=== PATIENT | male | born 1965 | race Caucasian/White ===

== ENCOUNTER → 2020-03-08 16:00 | Outpatient (BNVA) | payer SELFPAY | PROVIDERS: Visit Provider Nurse Practitioner Family | DX: M25.50 Pain in unspecified joint (principal); E78.2 Mixed hyperlipidemia; Z79.899 Other long term (current) drug therapy; I10 Essential (primary) hypertension; M25.569 Pain in unspecified knee; R53.83 Other fatigue; M19.90 Unspecified osteoarthritis, unspecified site; H66.90 Otitis media, unspecified, unspecified ear | CPT/HCPCS: 80053; 80061; 81001; 83036; 84443; 84550; 85025; 85651; 86140 ==

== ENCOUNTER → 2021-02-26 09:44 | Outpatient (BNVA) | payer SELFPAY | PROVIDERS: PCP Nurse Practitioner Family; Visit Provider Nurse Practitioner Family | DX: I10 Essential (primary) hypertension (principal); Z79.899 Other long term (current) drug therapy; Z12.5 Encounter for screening for malignant neoplasm of prostate; E55.9 Vitamin D deficiency, unspecified; E78.2 Mixed hyperlipidemia | CPT/HCPCS: 80053; 80061; 81003; 82306; 83036; 84443; 85025; G0103 ==

== ENCOUNTER → 2022-04-23 10:52 | Outpatient (BNVA) | payer SELFPAY | PROVIDERS: PCP Nurse Practitioner Family; Visit Provider Nurse Practitioner | DX: R53.83 Other fatigue (principal); T14.8XXA Other injury of unspecified body region, initial encounter; W57.XXXA Bitten or stung by nonvenomous insect and other nonvenomous arthropods, initial encounter | CPT/HCPCS: 85025; 86000; 86618; 86666; 86757 ==

== ENCOUNTER → 2022-05-01 11:36 | Outpatient (BNVA) | payer SELFPAY | PROVIDERS: PCP Nurse Practitioner Family; Visit Provider Nurse Practitioner | DX: M25.50 Pain in unspecified joint (principal); M19.90 Unspecified osteoarthritis, unspecified site; Z79.899 Other long term (current) drug therapy | CPT/HCPCS: 85651; 86038; 86431 ==

== ENCOUNTER → 2024-03-17 10:02 | Outpatient (BNVA) | payer SELFPAY | PROVIDERS: PCP Nurse Practitioner; Visit Provider Nurse Practitioner Family | DX: I10 Essential (primary) hypertension (principal); Z12.5 Encounter for screening for malignant neoplasm of prostate; E11.9 Type 2 diabetes mellitus without complications; Z79.899 Other long term (current) drug therapy; E78.2 Mixed hyperlipidemia | CPT/HCPCS: 80053; 81000; 83036; 85025; G0103 ==

== ENCOUNTER 2024-06-18 09:52 | Outpatient (CLI) | payer OTHER, SELFPAY ==
--- NOTE | 2024-06-18 10:15 | US_ITS ---
WS: [id number] ULTRASOUND ABDOMEN CLINICAL INFORMATION: K81.9 - Cholecystitis, unspecified COMPARISON: None. FINDINGS: Liver Size: Mild hepatomegaly Craniocaudal length: 16.6 cm. Echogenicity: Coarse Surface nodularity: None. Mass (size and location): None. Bile ducts Intrahepatic ducts: Normal. Common bile duct diameter: Not well visualized Gallbladder Normal. Gallstones: None. Gallbladder sludge: None. Gallbladder wall thickening: None. Pericholecystic fluid: None. Sonographic Arango sign: Absent. Pancreas Normal as visualized. Spleen Splenomegaly: None. Craniocaudal length: 9.9 cm. Right kidney: Normal. Hydronephrosis: None. Size: 11.6 cm x 6.4 cm x 6.3 cm Left kidney: Mild hydronephrosis Hydronephrosis: Present Size: 10.1 cm x 5.1 cm x 6.2 cm. Abdominal aorta and IVC Visualized portions are normal. Ascites: None. US/US abdomen complete* [id number] IMPRESSION: 1. Mild hepatomegaly with fatty filtration. 2. Normal gallbladder. 3. Mild LEFT hydronephrosis with dilatation of the LEFT renal pelvis and proxi mal ureter. Recommend further evaluation with noncontrast and contrast-enhanced CT abdomen pelvis to exclude obstruction. Slight dilatation of the LEFT renal pelvis also visualized on the prior CT in 2018 4. No hydronephrosis in the RIGHT kidney.
[2024-06-18 11:02] LABS: Basophils % 0.6 %; Eosinophils # 0.2 10^3/uL (0.0-0.8); Eosinophils % 4.4 %; Lymphocytes # 2.5 10^3/uL (0.8-4.8); Lymphocytes % 47.4 %; Mean Corpuscular HGB Conc 33.3 g/dL (30-55); Mean Corpuscular Hemoglobin 28.3 pg (27-33); Mean Corpuscular Volume 84.8 fl (82-101); Mean Platelet Volume 8.9 fL (7.4-10.4); Monocytes # 0.6 10^3/uL (0.2-0.9); Monocytes % 11.2 %; Neutrophils # 1.87 10^3/uL (1.8-7.7); Neutrophils % 36.2 %; Nucleated Red Blood Cells % 0 %; Platelet Count 326 10^3/cmm (157-399); Red Blood Count 4.95 10^6/uL (3.85-5.65); Red Cell Distribution Width 13.8 % (12.1-15.1); White Blood Count 5.17 10^3/uL (3.29-11.43)
[2024-06-18 11:18] LABS: Alanine Aminotransferase 18 U/L (0-41); Albumin Level 4.3 g/dL (3.5-5.2); Alkaline Phosphatase 92 U/L (40-130); Anion Gap 13.1 (5-19); Aspartate Amino Transferase 13 U/L (0-40); Blood Urea Nitrogen 17 mg/dL (6-20); Calcium 8.9 mg/dL (8.5-10.5); Carbon Dioxide 24 mmol/L (22-29); Chloride 106 mmol/L (98-107); Globulin 3.4 g/dL (1.3-4.6); Glomerular Filtration Rate 138.9 mL/min (90-130); Glucose 100 mg/dL (65-115); Osmolality Calculated 290 mOsm/kg (285-295); Potassium 4.1 mmol/L (3.5-5.1); Sodium 139 mmol/L (136-145); Total Bilirubin 0.3 mg/dL (0.15-1.2); Total Protein 7.7 g/dL (6.6-8.7)
[2024-06-21 13:38] LABS: Lyme AB Screen <0.90 index
[2024-06-21 16:20] LABS: Beef (27) IgE 0.19 kU/L; Beef Class 0/1; Lamb (F88) IgE <0.10 kU/L; Lamb Class 0; Pork (F26) IgE <0.10 kU/L; Pork Class 0
[2024-06-23 17:10] LABS: RMSF IGG NOT DETECTED; RMSF IGM NOT DETECTED
[2024-06-23 19:34] LABS: Galactose-alpha-1,3 IgE 0.39 kU/L (<0.10)
[2024-06-24 17:19] LABS: E. Chaffeensis AB IGG <1:64; E. Chaffeensis AB IGM <1:20
[2024-06-24 22:30] LABS: F.tularensis IgG AB Serum Negative (Negative); F.tularensis IgM AB Serum Negative (Negative)
== END 2024-06-18 09:53 | disposition home or self-care (01) ==
LOC: RAD 09:53
PROVIDERS: PCP Nurse Practitioner Family; Visit Provider Nurse Practitioner Family
DX: K81.9 Cholecystitis, unspecified (principal); R10.9 Unspecified abdominal pain; I10 Essential (primary) hypertension
CPT/HCPCS: 36415; 76700; 80053; 85025; 86003; 86008; 86160; 86618; 86666; 86668; 86757

== ENCOUNTER 2024-07-14 09:01 | Outpatient (CLI) | payer OTHER, SELFPAY ==
--- NOTE | 2024-07-14 09:00 | CTR_ITS ---
PROCEDURE INFORMATION: Exam: CT Abdomen And Pelvis Without And With Contrast Exam date and time: 07/14/2024 9:34 AM Age: 59 years old Clinical indication: Condition or disease; Kidney or ureter condition; Hydronephrosis; Prior surgery; Surgery date: 6+ months; Surgery type: Appy; Additional info: N13.30 - unspecified hydronephrosis TECHNIQUE: Imaging protocol: Computed tomography of the abdomen and pelvis without and with contrast. 3D rendering (Not supervised by radiologist): MIP and/or 3D reconstructed images were created by the technologist. Radiation optimization: All CT scans at this facility use at least one of these dose optimization techniques: automated exposure control; mA and/or kV adjustment per patient size (includes targeted exams where dose is matched to clinical indication); or iterative reconstruction. Contrast material: OMNI 350; Contrast volume: 100 ml; Contrast route: INTRAVENOUS (IV); COMPARISON: US abdomen complete* [id number] 06/18/2024 10:02 AM RADIATION DOSE METRICS: Total DLP (mGy-cm): 2044.24 FINDINGS: Liver: Normal. No mass. Gallbladder and biliary ducts: Normal. No calcified stones. No ductal dilation. Pancreas: Normal. No ductal dilation. Spleen: Normal. No splenomegaly. Adrenal glands: Normal. No mass. Kidneys and ureters: Normal. No hydronephrosis. Stomach and bowel: Unremarkable. No obstruction. No mucosal thickening. Appendix: Appendectomy. Intraperitoneal space: Unremarkable. No free air. No significant fluid collection. Vasculature: Unremarkable. No abdominal aortic aneurysm. Lymph nodes: Unremarkable. No enlarged lymph nodes. Urinary bladder: Unremarkable as visualized. Reproductive: Unremarkable as visualized. Bones/joints: Unremarkable. No acute fracture. Soft tissues: Unremarkable. CT/CT abdomen pelvis wo/w [id number] IMPRESSION: No acute subdiaphragmatic pathology.
[2024-07-14] MEDS: iohexol 350 mg/mL 500 mL Btl (per mL) IV (09:42)
== END 2024-07-14 09:02 | disposition home or self-care (01) ==
LOC: RAD 09:01
PROVIDERS: PCP Nurse Practitioner Family; Visit Provider Nurse Practitioner Family
DX: N13.30 Unspecified hydronephrosis (principal); N28.89 Other specified disorders of kidney and ureter; Z90.49 Acquired absence of other specified parts of digestive tract
CPT/HCPCS: 74178

== ENCOUNTER → 2024-10-26 14:15 | Outpatient (BNVA) | payer OTHER, SELFPAY | PROVIDERS: PCP Nurse Practitioner Family; Visit Provider Nurse Practitioner Family | DX: M23.8X1 Other internal derangements of right knee (principal); M89.49 Other hypertrophic osteoarthropathy, multiple sites | CPT/HCPCS: 73562 ==

== ENCOUNTER 2024-12-09 06:30 | Outpatient (RCR) | payer OTHER, SELFPAY | END 2024-12-10 23:59 | disposition home or self-care (01) | LOC: WPT 06:30 | PROVIDERS: Visit Provider Nurse Practitioner Family | DX: M25.561 Pain in right knee (principal); G89.29 Other chronic pain | CPT/HCPCS: 97161 ==

== ENCOUNTER 2024-12-11 06:30 | Outpatient (RCR) | payer OTHER, SELFPAY | END 2025-01-07 23:59 | disposition home or self-care (01) | LOC: WPT 06:30 | PROVIDERS: Visit Provider Nurse Practitioner Family | DX: M25.561 Pain in right knee (principal); G89.29 Other chronic pain | CPT/HCPCS: 97110; 97112; 97140; 97530 ==

== ENCOUNTER 2025-02-16 12:14 | Emergency (ER) | payer OTHER, SELFPAY ==
[2025-02-16] VITALS (35 sets, daily range): BP systolic 134–214; BP diastolic 73–113; PULSE 56–78; RESP 8–25; TEMP 36.6; O2SAT 93–100; BMI 27.9
--- NOTE | 2025-02-16 12:31 | ECG_ITS ---
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 Measurements Intervals [place] Rate: 65 P: 17 NC: 213 QRS: 37 QRSD: 89 T: 43 QT: 407 QTc: 426 Interpretive Statements SINUS RHYTHM WITH FIRST DEGREE AV BLOCK Compared to ECG 04/22/2016 23:01:23 T-wave abnormality no longer present Electronically Signed On 02-16-2025 15:57:36 CDT by Arsh Kang M.D. [id number] [id number]
[2025-02-16 13:09] LABS: Basophils # 0.1 10^3/uL (0.0-0.1); Basophils % 0.7 %; Eosinophils # 0.4 10^3/uL (0.0-0.8); Eosinophils % 5.1 %; Hematocrit 41.2 % (37-53); Lymphocytes # 2.4 10^3/uL (0.8-4.8); Lymphocytes % 35.1 %; Mean Corpuscular Hemoglobin 28.5 pg (27-33); Mean Corpuscular Volume 83.7 fl (82-101); Mean Platelet Volume 8.8 fL (7.4-10.4); Monocytes # 0.8 10^3/uL (0.2-0.9); Monocytes % 12.1 %; Neutrophils # 3.17 10^3/uL (1.8-7.7); Neutrophils % 46.7 %; Nucleated Red Blood Cells % 0 %; Platelet Count 368 10^3/cmm (157-399); Red Blood Count 4.92 10^6/uL (3.85-5.65); Red Cell Distribution Width 13.9 % (12.1-15.1)
[2025-02-16 13:19] LABS: Add Urine Microscopic? NO
[2025-02-16 13:28] LABS: Bilirubin Urine Neg (Negative); Blood Urine Neg (Negative); Glucose Urine UA Norm (Normal); Ketones Urine Negative (Negative); Leukocyte Esterase Urine Negative (Negative); Nitrate Urine Negative (Negative); Protein Urine Neg (Negative); Specific Gravity, Urine 1.015 (1.005-1.030); Urine Appearance Clear (CLEAR); Urine Color Yellow (Yellow); Urobilinogen Urine Norm (Negative); pH Urine 7 (5-7)
--- NOTE | 2025-02-16 13:28 | ED_ITS ---
HPI - Abdominal Pain 2 General: Chief Complaint: Abdominal Pain Stated Complaint: abd pain Time Seen by Provider: 02/16/25 12:55 History of Present Illness: 60-year-old male presents emergency room complaining abdominal pain. This been going on intermittently for several weeks. He was previously taking medications for his stomach but he stopped those. He was taking omeprazole in the past. Is not currently taking anything he does get a lot of reflux symptoms denies any hematemesis coffee-ground's hematochezia or melena. He noticed certain foods do seem to trigger more discomfort. Does not regularly drink alcohol. No chest pain no shortness of breath Associated Symptoms: Denies chills, coffee ground emesis, dysuria, fever(s), hematochezia, hematemesis and melena Related Data Home Medications ?Medication ?Instructions ?Recorded ?Confirmed amlodipine 10 mg tablet 10 mg PO DAILY 02/16/2508/04 meloxicam 15 mg tablet 15 mg PO DAILY 02/16/2508/04 Previous Rx's ?Medication ?Instructions ?Recorded epinephrine 0.3 mg/0.3 mL 0.3 mg (0.3 mL) IM Q10M PRN 07/14/24 injection, auto-injector (EpiPen anaphylaxis #2 ea 2-Aubrey) promethazine 25 mg tablet 25 mg PO Q6H PRN nausea and 02/16/25 vomiting #20 tabs Allergies Allergy/AdvReac Type Severity Reaction Status Date / Time lisinopril Allergy shortness Verified 02/16/25 12:32 of breath and cough Review of Systems 2 Const: Denies: fever(s) or chills Card: Denies: chest pain Resp: Denies: dyspnea GI: Reports: abdominal pain; Denies: hematemesis, coffee ground emesis, hematochezia or melena : Denies: dysuria, urinary frequency or urinary urgency Musc: Denies: neck pain or back pain Skin/Breast: Denies: rash PFSH ED 2 PFSH: Medical History Chronic pain of right knee Derangement of right knee ligament Allergic reaction Dilated renal pelvis Hydronephrosis of left kidney Tick bite Abdominal pain Cholecystitis Cellulitis of left arm Prostate cancer screening Encounter for medication management GERD (gastroesophageal reflux disease) Mixed hyperlipidemia Acute joint pain Chronic shoulder pain Xray series obtained by Dr. Barnes and reviewed on 07/26/2016 X-ray series includes an AP internal and extra rotation view of the patient's right shoulder as well as a Y view. ?X-rays demonstrate that there is degenerative change within the patient's right shoulder with an inferior spur on the humeral head. ?There is also small osteophyte inferiorly on the glenoid. ?Otherwise there is minimal degenerative change within the acromioclavicular joint and no evidence of other fracture or dislocation. ?There is cystic change within the glenoid neck which appears benign. ?The Y- view demonstrates that the shoulder is well located. ?Findings are consistent with mild to moderate degenerative osteoarthritic change of the right glenohumeral joint. Vitamin D deficiency GERD without esophagitis Essential hypertension Osteoarthritis Social History Smoking and tobacco/nicotine status: former use of tobacco/nicotine Physical Exam 2 Const: GENERAL APPEARANCE: cooperative ORIENTATION/CONSCIOUSNESS: Yes awake, Yes oriented to person, Yes oriented to place and Yes oriented to time HENMT: COMMON NORMALS: normocephalic, atraumatic and hearing grossly normal bilaterally HEAD & SCALP: normocephalic and atraumatic Resp: COMMON NORMALS: normal respiratory effort, No retractions, No use of accessory muscles and clear to auscultation bilaterally AUSCULTATION: clear to auscultation bilaterally Cardio: COMMON NORMALS: regular rate, regular rhythm and No murmurs present (Cardio) RATE: regular rate RHYTHM: regular rhythm GI: COMMON NORMALS: Soft to palpation and No hepatosplenomegaly present A USCULTATION: Yes normoactive bowel sounds PALPATION: Yes Soft to palpation, No Tenderness to palpation present (GI), No Guarding due to palpation present (GI) and Yes No hepatosplenomegaly present Extremity: COMMON NORMALS: normal to inspection, capillary refill normal, no clubbing, cyanosis or edema, no calf tenderness and no pedal edema Neuro: SENSORIUM/ORIENTATION: Yes oriented to person, Yes oriented to place and Yes oriented to time Skin: COMMON NORMALS: no rashes or lesions noted GENERAL SKIN EXAM: no rashes or lesions noted Course 2 Vital Signs: Vital signs: Vital Signs Temperature 98 F 02/16/25 12:27 Pulse Rate 61 02/16/25 15:48 Respiratory Rate 25 H 02/16/25 15:40 Blood Pressure 163/93 02/16/25 15:48 Pulse Oximetry 97 02/16/25 15:48 Oxygen Delivery Me thod Room Air 02/16/25 12:27 MDM - Abdominal Pain Medical Decision Making CT shows what appears to be peptic ulcers. He does seem to have more of a flare recently. May be from chronic reflux issues there is no evidence of active bleeding. He was complaining of some nausea we will give him some promethazine to use as needed restart [id number] omeprazole and we will set him up for surgery for possible EGD Medical Records I reviewed the patient's medical records. Lab Data I reviewed the patient's lab results. 02/16/25 13:02 02/16/25 13:02 Labs/Radiology: Radiology Impressions Abdomen/Pelvis CT 02/16/25 13:55 IMPRESSION: 1. Evidence of gastritis and duodenitis. 2. Trace induration at the pancreatic head. Recommend correlation with pancreatic enzymes for pancreatitis 3. Fatty liver. 4. No hydronephrosis in either kidney. 5. Sigmoid diverticulosis. Laboratory Results WBC 6.80 10^3/uL (3.29-11.43) 02/16/25 13:02 RBC 4.92 10^6/uL (3.85-5.65) 02/16/25 13:02 Hgb 14.00 g/dL (11.27-16.99) 02/16/25 13:02 Hct 41.2 % (37-53) 02/16/25 13:02 MCV 83.7 fl (82-101) 02/16/25 13:02 MCH 28.5 pg (27-33) 02/16/25 13:02 MCHC 34.0 g/dL (30-55) 02/16/25 13:02 RDW 13.9 % (12.1-15.1) 02/16/25 13:02 Plt Count 368 10^3/cmm (157-399) 02/16/25 13:02 MPV 8.8 fL (7.4-10.4) 02/16/25 13:02 Neut % (Auto) 46.7 % 02/16/25 13:02 Lymph % (Auto) 35.1 % 02/16/25 13:02 [place] % (Auto) 12.1 % 02/16/25 13:02 Eos % (Auto) 5.1 % 02/16/25 13:02 Baso % (Auto) 0.7 % 02/16/25 13:02 Neut # (Auto) 3.17 10^3/uL (1.8-7.7) 02/16/25 13:02 Lymph # (Auto) 2.4 10^3/uL (0.8-4.8) 02/16/25 13:02 [place] # (Auto) 0.8 10^3/uL (0.2-0.9) 02/16/25 13:02 Eos # (Auto) 0.4 10^3/uL (0.0-0.8) 02/16/25 13:02 Baso # (Auto) 0.1 10^3/uL (0.0-0.1) 02/16/25 13:02 Nucleated RBC % (auto) 0 % 02/16/25 13:02 Nucleated RBCs # 0.0 /100WBC 02/16/25 13:02 Sodium 138 mmol/L (136-145) 02/16/25 13:02 Potassium 3.9 mmol/L (3.5-5.1) 02/16/25 13:02 Chloride 105 mmol/L (98-107) 02/16/25 13:02 Carbon Dioxide 21 mmol/L (22-29) L 02/16/25 13:02 Anion Gap 15.9 (5-19) 02/16/25 13:02 BUN 18 mg/dL (6-20) 02/16/25 13:02 Creatinine 0.7 mg/dL (0.7-1.2) 02/16/25 13:02 GFR Calculation 115.8 mL/min (90-130) 02/16/25 13:02 Glucose 94 mg/dL (65-115) 02/16/25 13:02 Calculated Osmolality 288 mOsm/kg (285-295) 02/16/25 13:02 Calcium 9.0 mg/dL (8.5-10.5) 02/16/25 13:02 Total Bilirubin 0.2 mg/dL (0.15-1.2) 02/16/25 13:02 AST 14 U/L (0-40) 02/16/25 13:02 ALT 15 U/L (0-41) 02/16/25 13:02 Alkaline Phosphatase 93 U/L (40-130) 02/16/25 13:02 Total Protein 7.7 g/dL (6.6-8.7) 02/16/25 13:02 Albumin 4.3 g/dL (3.5-5.2) 02/16/25 13:02 Globulin 3.4 g/dL (1.3-4.6) 02/16/25 13:02 Lipase 41 U/L (13-60) 02/16/25 13:02 Urine Color Yellow (Yellow) 02/16/25 13:09 Urine Appearance Clear (CLEAR) 02/16/25 13:09 Urine pH 7 (5-7) 02/16/25 13:09 Ur Specific [place] 1.015 (1.005-1.030) 02/16/25 13:09 Urine Protein Neg (Negative) 02/16/25 13:09 Urine Glucose (UA) Norm (Normal) 02/16/25 13:09 Urine Ketones Negative (Negative) 02/16/25 13:09 Urine Blood Neg (Negative) 02/16/25 13:09 Urine Nitrate Negative (Negative) 02/16/25 13:09 Urine Bilirubin Neg (Negative) 02/16/25 13:09 Urine Urobilinogen Norm mg/dL (Negative) 02/16/25 13:09 Ur Leukocyte Esterase Negative (Negative) 02/16/25 13:09 Amorphous Sediment Not Reportable 02/16/25 13:09 All radiology interpretation(s) finalized by discharge Discharge Plan Discharge Patient Disposition: Home Clinical Impression: Gastroenteritis Condition: Stable Prescriptions: New promethazine 25 mg tablet 25 mg PO Q6H PRN (Reason: nausea and vomiting) Qty: 20 0RF No Action epinephrine [EpiPen 2-Aubrey] 0.3 mg/0.3 mL auto-injector 0.3 mg IM Q10M PRN (Reason: anaphylaxis) Qty: 2 1RF Rx Instructions: for 2 doses meloxicam 15 mg tablet 15 mg PO DAILY Rx Instructions: TAKE 1 TABLET BY MOUTH DAILY amlodipine 10 mg tablet 10 mg PO DAILY Rx Instructions: TAKE 1 TABLET BY MOUTH DAILY Discharge Orders: Discharge ED (Routine); Ordered 02/16/25 Ordered By: Tariq Dale Referrals: NICK Loja, FELLED SEAM OPERATOR CHAINSTITCH [Primary Care Provider] - Discharge Diet: Clear Liquid Discharge Activity: Increase activity as tolerated Patient Instructions: Opioid Safety, Pain Management Activity Restrictions/Additional Instructions: Thank you for choosing [facility] for your healthcare needs today. It is very important that you follow up as instructed or that you return to the Emergency Department should you have concerns or if your condition changes or worsens in any way. You were seen in the emergency room with complaints of abdominal pain. Laboratory tests are unremarkable your CT shows signs of gastroenteritis. 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
[2025-02-16 13:30] LABS: Charge for UA Resulting for Rev
[2025-02-16 13:40] LABS: Alanine Aminotransferase 15 U/L (0-41); Albumin Level 4.3 g/dL (3.5-5.2); Alkaline Phosphatase 93 U/L (40-130); Anion Gap 15.9 (5-19); Aspartate Amino Transferase 14 U/L (0-40); Blood Urea Nitrogen 18 mg/dL (6-20); Carbon Dioxide 21 mmol/L (22-29); Chloride 105 mmol/L (98-107); Creatinine Clr Calc Pharmacy 121.0873; Globulin 3.4 g/dL (1.3-4.6); Glomerular Filtration Rate 115.8 mL/min (90-130); Glucose 94 mg/dL (65-115); Lipase 41 U/L (13-60); Osmolality Calculated 288 mOsm/kg (285-295); Potassium 3.9 mmol/L (3.5-5.1); Sodium 138 mmol/L (136-145); Total Bilirubin 0.2 mg/dL (0.15-1.2); Total Protein 7.7 g/dL (6.6-8.7)
--- NOTE | 2025-02-16 13:55 | CT_ITS ---
WS: [id number] CT ABDOMEN PELVIS TECHNIQUE: Contrast-enhanced CT of the abdomen and pelvis with coronal and sagittal reformatted images. CLINICAL INFORMATION: abd pain COMPARISON: CT 07/14/2024 DLP: 633.[address] scans at [facility] use at least one of these dose optimization techniques: automated exposure control; mA and/or kV adjustment per patient size (includes targeted exams where dose is matched to clinical indication); or iterative reconstruction. FINDINGS: Fatty liver. Tiny hepatic cyst. Normal portal vein and splenic vein. Normal GE junction. Gastritis and duodenitis with gastric wall thickening and duodenal enhancement. Trace induration of the pancreatic head may be incidental but recommend correlation for pancreatitis. Lung bases are well aerated. Adrenal glands are normal. Normal renal parenchymal enhancement. No hydronephrosis. Normal spleen. Normal pancreas. Normal caliber abdominal aorta. Aortic calcification. Sigmoid diverticulosis. No evidence of acute diverticulitis. Small fat- containing umbilical hernia. Disc space narrowing L5-S1. CT/CT abdomen pelvis w con* [id number] IMPRESSION: 1. Evidence of gastritis and duodenitis. 2. Trace induration at the pancreatic head. Recommend correlation with pancrea tic enzymes for pancreatitis 3. Fatty liver. 4. No hydronephrosis in either kidney. 5. Sigmoid diverticulosis.
[2025-02-16] MEDS: iohexol 350 mg/mL 500 mL Btl (per mL) IV (14:21)
--- NOTE | 2025-02-16 18:25 | DCPLANNER ---
messaged gen surg for er f/u
== END 2025-02-16 15:49 | disposition home or self-care (01) ==
PROVIDERS: Emergency Medicine; Emergency Provider Family Medicine; PCP Nurse Practitioner Family
DX: K52.9 Noninfective gastroenteritis and colitis, unspecified (principal); I10 Essential (primary) hypertension
CPT/HCPCS: 36415; 74177; 80053; 81003; 83690; 85025; 93005; 99285

== ENCOUNTER 2025-03-15 11:58 | Day surgery (SDC) | payer OTHER, SELFPAY ==
[2025-03-15 12:25] VITALS: BP 163/98; PULSE 59; RESP 18; TEMP 36.6; O2SAT 97; BMI 27.3
[2025-03-15] MEDS: sodium chloride 0.9% 500 ML 15 ML IV (12:31)
--- NOTE | 2025-03-15 13:01 | ANES.PREANE2 ---
Pre-Anesthetic Assessment Height/Weight: Height 1.73 m Weight 81.647 kg Temp Pulse Resp BP Pulse Ox O2 Del Method 97.9 F 59 L 18 163/98 97 Room Air 03/15/25 12:25 03/15/25 12:25 03/15/25 12:25 03/15/25 12:25 03/15/25 12:03/15/25 12:25 Operation Date: 03/15/25 13:45 Proposed Procedures p EGD 91328, K21.9(Not Applicable) - Scott Castelan MD Familial anesthetic complications: none Last intake: Intake Last Liquid Date 03/14/25 Last Liquid Time 21:00 Last Solid Date 03/14/25 Last Solid Time 21:00 Pulmonary none CV/HEM none none Hepatic none GI none Metabolic none Musc/skel none Neuropsych none Anesthetic Plan ASA status: 2 Medications/Allergies Home Medications ?Medication ?Instructions ?Recorded ?Confirmed ?Last Taken ?Type epinephrine 0.3 mg/0.3 mL 0.3 mg (0.3 mL) IM Q10M PRN 07/14/24 03/14/25 Unknown Rx injection, auto-injector (EpiPen anaphylaxis #2 ea 2-Aubrey) amlodipine 10 mg tablet 10 mg PO DAILY 02/16/25 03/14/25 03/14/25 History meloxicam 15 mg tablet 15 mg PO DAILY #30 tabs 03/10/25 03/14/25 03/14/25 Rx hydrochlorothiazide 12.5 mg capsule 12.5 mg PO DAILY 03/14/25 03/14/25 03/14/25 History diphenhydramine HCl 50 mg capsule 50 mg PO BEDTIME 03/15/25 03/15/25 03/14/25 History omeprazole 20 mg capsule,delayed 20 mg PO DAILY 03/15/25 03/15/25 03/14/25 History release Allergies Allergy/AdvReac Type Severity Reaction Status Date / Time ibuprofen Allergy Severe ALGY-Difficulty Verified 03/14/25 09:07 Breathing lisinopril Allergy shortness Verified 03/14/25 09:07 of breath and cough naproxen (From Aleve) Allergy ALGY-Hives Verified 03/15/25 12:30 Current Medications Generic Name Dose Route Start Last Admin Trade Name Freq PRN Reason Stop Dose Admin Sodium Chloride 500 mls @ 15 mls/hr 03/15/25 12:30 03/15/25 12:31 Sodium Chloride 0.9% IV 15 mls/hr .Q24H MARLENE Administration PFSH Anesthesia Medical History Chronic pain of right knee Derangement of right knee ligament Allergic reaction Dilated renal pelvis Hydronephrosis of left kidney Tick bite Abdominal pain Cholecystitis Cellulitis of left arm Prostate cancer screening Encounter for medication management GERD (gastroesophageal reflux disease) Mixed hyperlipidemia Acute joint pain Chronic shoulder pain Xray series obtained by Dr. Barnes and reviewed on 07/26/2016 X-ray series includes an AP internal and extra rotation view of the patient's right shoulder as well as a Y view. ?X-rays demonstrate that there is degenerative change within the patient's right shoulder with an inferior spur on the humeral head. ?There is also small osteophyte inferiorly on the glenoid. ?Otherwise there is minimal degenerative change within the acromioclavicular joint and no evidence of other fracture or dislocation. ?There is cystic change within the glenoid neck which appears benign. ?The Y-view demonstrates that the shoulder is well located. ?Findings are consistent with mild to moderate degenerative osteoarthritic change of the right glenohumeral joint. Vitamin D deficiency GERD without esophagitis Essential hypertension Osteoarthritis Social History Smoking and tobacco/nicotine status: former use of tobacco/nicotine
--- NOTE | 2025-03-15 13:13 | W.PM.OPSUD ---
Surgery/Procedure H&P Update DATE OF PROCEDURE: March 15, 2025 DATE H&P PERFORMED: 03/07/25 H&P UPDATE INFORMATION: I have reviewed H&P completed within last 30 days, I have examined patient prior to procedure and No changes to prior documentation PLANNED PROCEDURE: Operation Date: 03/15/25 13:45 Proposed Procedures p EGD 98498, K21.9(Not Applicable) - Scott Castelan MD
[2025-03-15 13:34] VITALS: BP 139/90; PULSE 68; RESP 18; TEMP 36.3; O2SAT 94
[2025-03-15] MEDS: ondansetron 2 mg/ML SDV 2 mL 4 MG IVP (14:01)
--- NOTE | 2025-03-15 14:16 | ANE.PACU2 ---
Inpatient post-anesthesia follow up: Airway intact: Yes Vital signs: Temperature 97.3 F Pulse Rate 68 Respiratory Rate 18 Blood Pressure 139/90 Pulse Oximetry 94 Oxygen Delivery Me thod Nasal Cannula Oxygen Flow Rate 6 Fraction of Inspir ed Oxygen Hydration adequate: Yes Nausea and vomiting: No Pain level: 2 Mental status: Baseline
== END 2025-03-15 14:16 | disposition home or self-care (01) ==
PROVIDERS: PCP Nurse Practitioner Family; Visit Provider Student in an Organized Health Care Education/Training Program
PROC: 0DJ08ZZ Inspection of Upper Intestinal Tract, Via Natural or Artificial Opening Endoscopic (ICD-10-PCS; principal; 2025-03-15 13:45)
DX: K29.30 Chronic superficial gastritis without bleeding (principal); B96.81 Helicobacter pylori [H. pylori] as the cause of diseases classified elsewhere; K29.80 Duodenitis without bleeding; K21.9 Gastro-esophageal reflux disease without esophagitis; E78.2 Mixed hyperlipidemia; I10 Essential (primary) hypertension; Z79.899 Other long term (current) drug therapy; Z88.8 Allergy status to other drugs, medicaments and biological substances; Z87.891 Personal history of nicotine dependence
CPT/HCPCS: 43239; 88305; 88342; J2405; J2704; J3490; J7040; J9999

== ENCOUNTER → 2025-08-02 15:02 | Outpatient (BNVA) | payer OTHER, SELFPAY | PROVIDERS: PCP Nurse Practitioner Family; Visit Provider Nurse Practitioner Family | DX: I10 Essential (primary) hypertension (principal); E78.2 Mixed hyperlipidemia; E11.9 Type 2 diabetes mellitus without complications; E55.9 Vitamin D deficiency, unspecified; Z12.5 Encounter for screening for malignant neoplasm of prostate; T30.0 Burn of unspecified body region, unspecified degree; Z79.899 Other long term (current) drug therapy; N48.5 Ulcer of penis | CPT/HCPCS: 80053; 80061; 81003; 82306; 83036; 84443; 85025; 86592; 86695; 86696; 87491; 87591; 87806; G0103 ==